=== PATIENT | female | born 1960 | race Caucasian/White ===

== ENCOUNTER 2018-06-23 09:32 | Inpatient (IN) ==
[2018-06-23] MEDS ORDERED: (Linaclotide [Linzess] 145 MCG) PO PRN (13:55)
--- NOTE | 2018-06-23 14:06 | Internal Med History&Physical ---
Addendum entered and electronically signed by Po Love MD 06/24/18 14:22: I have personally performed a face to face evaluation on this patient. I have r eviewed and agree with the care plan. History and Exam by me shows: Patient had a left total hip replacement on 2018, by Dr. Wilks. Her postoperative recovery was complicated by hypotension and because of this, her pain med was held. She was frequently in terrible pain and muscle relaxant alternating with pain medication has helped. She has history of chronic low back pain which causes her to take Vicodin equivalent at home. She is also constipated after surgery and has not moved her bowels since then. She has no nausea or abdominal pain but does feel like she needs to go. She has frequent muscle spasm in the low thigh but it does seem to respond somewhat to Flexeril. She wishes it was better. She has no other complaints or problems. Past medical history was removed. She has depression and anxiety since around 1999 and takes multiple medications for this. She is stable on her current regimen. She has not really had high blood pressure but has had paroxysmal supraventricular tachycardia and takes metoprolol and Cardizem long-acting for this. She has had no arrhythmia in the last few days but they have not given her either of these medications for 2 days because of her low blood pressure. We discussed at length that we want her to have whatever she can have this medication, so that she does not develop repeat arrhythmia. She has significant fibromyalgia and feels that many of her aches and pains are exacerbated by this. Past surgical history is significant for appendectomy, complete hysterectomy, tonsillectomy, low back (lumbar) laminectomy. Promethazine and prochlorperazine make her sick although they are not actual allergies. She does not smoke or drink. Family history is significant for coronary disease but Ativan stage in her father and spinal stenosis and her mother; one brother has diabetes. Both parents also had migraines. She has lost 20 pounds on purpose over the last 2 months. Patient has no complaint of chest discomfort, dyspnea, orthopnea, breathing problems, palpitations, nausea or vomiting, constipation or diarrhea, other changes in bowel habits, heartburn, difficulty with urination, kidney problems or kidney stones, fevers chills or sweats, rash or itching, seizures, headache or lightheadedness, heat or cold intolerance, blood problems or anemia, or other new complaints, except as mentioned above. Review of systems is otherwise negative. Examination: (Except as mentioned above): General: In no apparent distress, alert and oriented 3. Head: Atraumatic and normocephalic. Eyes: Extraocular muscles are intact, pupils equal round and reactive to light and accommodation. Sclerae anicteric. Ears: External ears are normal to inspection and hearing is grossly normal. Nose: Patent without lesion noted. Mouth: No intraoral lesions seen. Dentition is unremarkable. Neck: Supple with trachea midline. There is no thyromegaly or adenopathy and carotids are 2+ without bruit heard. Respiratory: No use of accessory muscles. Lungs are clear throughout. Normal airflow. Cardiovascular: Regular rate and rhythm without murmur appreciated. Abdomen: Bowel sounds are normal. No hepatosplenomegaly masses or tenderness. Obese and therefore difficult to palpate deeply. Patient is examined upright in chair and this also limits exam. Extremities: No cyanosis clubbing or edema. Neurological: A and O 3. Cranial nerves II through XII are intact. No focal deficits and no abnormal movements or postures. Skin: Warm and non-diaphoretic with no lesions noted. Breasts, pelvic and rectal: Not examined. The patient will receive occupational and recreational and physical therapies to restore her station and gait to acceptable and safe. She will likely be a short stay, depending on how she does in therapy. We will place hold parameters on her medications and resume metoprolol and Cardizem as possible. She will receive Lovenox for DVT prophylaxis. Original Note: Date of Encounter: 06/23/18 Time of Encounter: 14:02 Assessment and Plan (1) Status post total hip replacement, left Current visit: Yes Status: Acute Patient admitted to this facility for rehabilitation secondary to a left total hip replacement. Surgical incision appears healthy and intact. Patient states her pain is well-controlled with current medications. Patient will be started on Flexeril for additional pain coverage. Physical therapy evaluation pending. Patient states she has already been ambulating in her room with assistance and has done well. Current plan of care. (2) HTN (hypertension) Current visit: Yes Status: Chronic Vital signs currently are stable. We will continue with current medications. Qualifiers: Hypertension type: essential hypertension Qualified Code(s): I10 - Essential (primary) hypertension (3) Depression Current visit: No Status: Chronic Patient with long history of depression. We will continue with her current home medications. Will have psychology around on patient during her next a and facility. Qualifiers: Depression Type: unspecified Qualified Code(s): F32.9 - Major depressive disorder, single episode, unspecified Internal Medicine - H&P: HPI Chief complaint: left THR Admitted From: Hospital to Hospital Transfer Plans for Post Hospital Care: Home History of present illness: Ms. Randolph is a 57 year old female, who was transferred to this facility from an [facility] where she had an elective left total hip replacement on 06/21/2018. Patient was transferred here for further rehabilitation due to generalized weakness secondary to her surgery. Patient states that her recovery from surgery was uneventful and she currently denies any discomforts or shortness of breath. Left hip surgical incision appears healthy and intact. Distal CV within normal limits. Patient states that she has been ambulating in her room with assistance from physical therapy. Patient currently has a history of depression, fibromyalgia, osteoarthritis, lumbar disc disease, SVT. Past Med Surg Social Fam HX - Past Medical History Medical history: fibromyalgia, hyperlipidemia, SVT, other Additional medical history: depression. anxiety. osteoarthritis. lumbar DDD L4/5 L5/S1. lumbar facet arthropathy. disorder of pelvis, sacrum Psychiatric history: anxiety, depression - Social History Smoking Status: Never smoker Smokeless Tobacco Status: No Alcohol use: none Drug use: none - Family History Father Hx Family Cardiac Disorders: Yes (CABG) Mother Hx Family Neurologic Disorders: Yes (TIA) Internal Medicine - H&P: Meds Aspirin Enteric Coated [Aspirin EC] 325 mg PO BID #20 tablet. 06/20/18 [Rx] Docusate [Colace] 100 mg PO BID 10 Days #20 capsule 06/20/18 [Rx] OxyCODONE Immed Rel [Roxicodone 5 MG] 5 mg PO Q6HR PRN 7 Days #28 tablet 06/20/18 [Rx] Duloxetine HCl [Cymbalta] 60 mg PO DAILY 06/21/18 [History] Linaclotide [Linzess] 145 mcg PO DAILY PRN 06/21/18 [History] Metoprolol Tartrate 50 mg PO BID 06/21/18 [History] Potassium Citrate [Urocit-K] 10 meq PO TID 06/21/18 [History] Pravastatin Sodium [Pravachol] 80 mg PO DAILY 06/21/18 [History] Pregabalin [Lyrica] 150 mg PO BID 06/21/18 [History] BuPROPion [Wellbutrin] 25 mg PO QAM 06/22/18 [History] BuPROPion [Wellbutrin] 50 mg PO HS 06/22/18 [History] Buspirone HCl [Buspar] 15 mg PO BID 06/22/18 [History] Celecoxib [Celebrex] 100 mg PO BID 06/22/18 [History] Diltiazem CD (24hr) [Cardizem CD] 240 mg PO DAILY 06/22/18 [History] Ascorbic Acid [Vitamin C] 500 mg PO BIDWM tablet 06/23/18 [Rx] Ferrous Sulfate 325 mg PO BIDWM tablet 06/23/18 [Rx] Multivit/Ca/Min/Fe/FA [Thera M Plus] 1 tab PO DAILY tablet 06/23/18 [Rx] Allergy/AdvReac Type Severity Reaction Status Date / Time bupropion [From Wellbutrin] Allergy See Verified 06/16/18 10:29 Comments prochlorperazine Allergy See Verified 06/16/18 10:29 [From Compazine] Comments promethazine [From Phenergan] Allergy See Verified 06/16/18 10:29 Comments All Systems PM: A 10-system review of systems was performed and is negative for pertinent findings except as documented above in the HPI. - Constitutional Constitutional: as per HPI, no chills, no fever(s), no night sweats - EENT Eyes: as per HPI, no change in vision, no discharge, no pain, no photophobia Ears: as per HPI, no ear discharge, no ear pain, no tinnitus Nose, mouth and throat: as per HPI, no dysphagia, no nasal discharge, no neck pain, no sore throat - Breasts Breasts: as per HPI - Cardiovascular Cardiovascular ROS IM: as per HPI, no chest pain, no diaphoresis, no dyspnea, no lightheadedness, no palpitations, no syncope - Respiratory Respiratory: as per HPI, no cough, no dyspnea, no wheezing, no excessive phlegm production - Gastrointestinal Gastrointestinal: as per HPI, no abdominal pain, no diarrhea, no hematemesis, no hematochezia, no melena, no nausea, no vomiting - Genitourinary Genitourinary: as per HPI, no change in urinary stream, no dysuria, no flank deanna n, no hematuria Menstruation: as per HPI - Musculoskeletal Musculoskeletal ROS IM: as per HPI, no numbness, no tingling - Integumentary Integumentary IM: as per HPI, no rash, no unusual bruising - Neurological Neurological ROS: as per HPI, no confusion, no convulsions, no focal weakness, no numbness, no tingling, no tremor(s) - Psychiatric Psychiatric: as per HPI - Hematologic/Lymphatic Hematologic/Lymphatic: no easy bruising - Constitutional Vitals: Temp Pulse Resp BP Pulse Ox 97.6 F 92 15 105/71 93 06/23/18 13:45 06/23/18 13:45 06/23/18 13:45 06/23/18 13:45 06/23/18 13:45 General appearance: Present: A&O X 3, pleasant - Head Head exam: Present: atraumatic, normocephalic - Eye Eye exam: Present: PERRL, conjuntiva pink, sclera anicteric Pupils: Present: PERRL - Neck Neck exam general surgery: Present: full ROM, supple, trachea midline. Absent: lymphadenopathy - Respiratory Respiratory exam: Present: CTAB. Absent: accessory muscle use, rales, rhonchi, wheezes - Cardiovascular Cardiovascular exam: Present: RRR, +S1, +S2. Absent: diastolic murmur, gallop, rubs, systolic murmur - GI/Abdominal GI/Abdominal exam: Present: normal bowel sounds, soft, no peritoneal signs. Absent: distended, tenderness - Extremities Exam Extremities exam: Present: warm, radial pulses palpable and symmetrical. Absent: calf tenderness, cyanotic, pedal edema Additional comments: Left hip surgical incision remains healthy and intact. Minimal amount of edema. No ecchymosis noted. - Neurological Exam Neurological exam: Present: CN II-XII intact, oriented X3, no focal deficits. Absent: pronater drift, facial droop, speech deficit - Skin Skin exam: Present: dry, intact
[2018-06-23] MEDS: Potassium Citrate 10 MEQ TABLET.ER PO SCH ×2 (15:17→22:03)
[2018-06-23] MEDS: Ascorbic Acid 500 MG TABLET PO SCH (17:49)
[2018-06-23] MEDS: *HR* OxyCODONE Immed Rel 5 MG TABLET PO PRN (17:49)
[2018-06-23] MEDS: Celecoxib 100 MG CAPSULE PO SCH (22:00)
[2018-06-23] MEDS: Pregabalin 75 MG CAPSULE PO SCH (22:01)
[2018-06-23] MEDS: Aspirin Enteric Coated 325 MG Tablet PO SCH (22:01)
[2018-06-24] MEDS: *HR* OxyCODONE Immed Rel 5 MG TABLET PO PRN ×4 (01:32→22:35)
[2018-06-24] MEDS: *HR* Enoxaparin 40 MG/0.4 ML SYRINGE SQ SCH (04:24)
[2018-06-24 05:03] LABS: Basophils % 0.4 %; Eosinophils # 0.2 K/mcL (0.0-0.6); Eosinophils % 2.8 %; Hematocrit 31.4 % (35.3-44.9); Hemoglobin 10.3 g/dL (11.5-15.4); Immature Granulocytes % 0.4 % (0-4); Lymphocytes # 1.2 K/mcL (0.6-4.6); Lymphocytes % 14.2 %; Mean Corpuscular HGB Conc 32.8 g/dL (31.6-35.5); Mean Corpuscular Hemoglobin 30.9 pg (28.0-33.3); Mean Corpuscular Volume 94.3 fL (83.0-100.0); Mean Platelet Volume 11.3 fL (9.4-12.4); Monocytes # 0.7 K/mcL (0.0-1.3); Monocytes % 8.4 %; Neutrophils # 6.2 K/mcL (1.6-8.9); Platelet Count 214 K/mcL (140-400); Red Blood Count 3.33 M/mcL (3.82-4.97); Red Cell Distribution Width 13.4 % (11.5-14.5); Segmented Neutrophils % 73.8 %
[2018-06-24 05:18] LABS: Alanine Aminotransferase 9 Units/L (7-52); Albumin 3.2 g/dL (3.5-5.7); Albumin/Globulin Ratio 1.2 (1.1-2.2); Alkaline Phosphatase 47 Units/L (34-104); Aspartate Amino Transferase 27 Units/L (13-39); BUN/Creatinine Ratio 13 (6-26); Bilirubin,Total 0.3 mg/dL (0.3-1.0); Blood Urea Nitrogen 10 mg/dL (6-20); Calcium 8.4 mg/dL (8.6-10.3); Carbon Dioxide 24 mEq/L (23-29); Chloride 108 mEq/L (98-107); Globulin 2.6 g/dL (2.4-3.5); Glucose 108 mg/dL (70-105); Magnesium 1.7 mg/dL (1.6-2.6); Osmolality,Calculated 286 (280-300); Potassium 3.8 mEq/L (3.5-5.1); Sodium 138 mEq/L (136-145); Total Protein 5.8 g/dL (6.4-8.9); eGFR For Non-African Americans > 60 (> 60)
[2018-06-24] MEDS ORDERED: Diltiazem CD (24hr) 240 MG CAPSULE PO SCH ×2 (09:00→14:38)
[2018-06-24] MEDS: Potassium Citrate 10 MEQ TABLET.ER PO SCH ×3 (09:44→20:21)
[2018-06-24] MEDS: Multivit/Ca/Min/Fe/FA 1 TAB TABLET PO SCH (09:44)
[2018-06-24] MEDS: Ascorbic Acid 500 MG TABLET PO SCH ×2 (09:45→17:38)
[2018-06-24] MEDS: Pregabalin 75 MG CAPSULE PO SCH ×2 (09:45→20:21)
[2018-06-24] MEDS: Celecoxib 100 MG CAPSULE PO SCH ×2 (09:45→20:20)
[2018-06-24] MEDS: Aspirin Enteric Coated 325 MG Tablet PO SCH (11:31)
--- NOTE | 2018-06-24 14:34 | Internal Med Progress Note ---
Date of Encounter: 06/24/18 Time of Encounter: 11:30 - Assessment and plan (1) Status post total hip replacement, left Current Visit: Yes Status: Acute Assessment and plan: Therapies as planned. (2) SVT (supraventricular tachycardia) Current Visit: No Status: Chronic Assessment and plan: Treated with metoprolol and Cardizem, as noted. (3) HLD (hyperlipidemia) Current Visit: No Status: Chronic Assessment and plan: We will continue current regimen. Qualifiers: Hyperlipidemia type: mixed hyperlipidemia Qualified Code(s): E78.2 - Mixed hyperlipidemia (4) Depression Current Visit: No Status: Chronic Assessment and plan: We will continue home regimen. Qualifiers: Depression Type: unspecified Qualified Code(s): F32.9 - Major depressive disorder, single episode, unspecified (5) Anxiety Current Visit: No Status: Chronic Assessment and plan: We will continue home regimen. (6) Constipation by delayed colonic transit Current Visit: Yes Status: Acute Assessment and plan: We discussed the use of her Linzess from home when she can get it here. Until then, I suggested that she use at least MiraLAX tonight. - Subjective Interval history: Please see my H&P addendum as noted, today. - Constitutional Vitals: Temp Pulse Resp BP Pulse Ox 98.5 F 93 16 109/73 99 06/24/18 12:00 06/24/18 12:00 06/24/18 12:00 06/24/18 12:00 06/24/18 12:00 General appearance: Present: A&O X 3, pleasant Internal Medicine: Result - Labs CBC & Chem 7: 06/24/18 04:45 06/24/18 04:45 Labs: Short CBC 06/24/18 Range/Units 04:45 WBC 8.4 (4.3-11.1) K/mcL Hgb 10.3 L (11.5-15.4) g/dL Hct 31.4 L (35.3-44.9) % Plt Count 214 (140-400) K/mcL Neutrophils # 6.2 (1.6-8.9) K/mcL BMP 06/24/18 04:45 Sodium 138 Potassium 3.8 Chloride 108 H Carbon Dioxide 24 BUN 10 Creatinine 0.77 Glucose 108 H Calcium 8.4 L Liver Function 06/24/18 Range/Units 04:45 Total Bilirubin 0.3 (0.3-1.0) mg/dL AST 27 (13-39) Units/L ALT 9 (7-52) Units/L Alkaline Phosphatase 47 (34-104) Units/L Albumin 3.2 L (3.5-5.7) g/dL Consult Discharge Plan - Plan Referrals: Sally Bernstein [Primary Care Provider] -
[2018-06-24] MEDS ORDERED: tiZANidine 4 MG TABLET PO PRN (14:39)
[2018-06-24] MEDS ORDERED: *HR* OxyCODONE Immed Rel 5 MG TABLET PO SCH (16:00)
[2018-06-24] MEDS: Acetaminophen 325 MG TABLET PO PRN (19:01)
[2018-06-25] MEDS: *HR* Enoxaparin 40 MG/0.4 ML SYRINGE SQ SCH (05:34)
[2018-06-25] MEDS: *HR* OxyCODONE Immed Rel 5 MG TABLET PO PRN ×4 (05:35→21:34)
[2018-06-25] MEDS: Potassium Citrate 10 MEQ TABLET.ER PO SCH ×3 (09:42→21:28)
[2018-06-25] MEDS: Ascorbic Acid 500 MG TABLET PO SCH ×2 (09:42→17:14)
[2018-06-25] MEDS: Pregabalin 75 MG CAPSULE PO SCH ×2 (09:42→21:28)
[2018-06-25] MEDS: Multivit/Ca/Min/Fe/FA 1 TAB TABLET PO SCH (09:43)
[2018-06-25] MEDS: Celecoxib 100 MG CAPSULE PO SCH ×2 (09:43→21:29)
--- NOTE | 2018-06-25 10:26 | Internal Med Progress Note ---
Addendum entered and electronically signed by Larisa Belcher 06/27/18 13:21: I have personally performed a face to face evaluation on this patient. I have reviewed and agree with the care plan. : Original Note: Date of Encounter: 06/25/18 Time of Encounter: 10:24 - Assessment and plan (1) Status post total hip replacement, left Current Visit: Yes Status: Acute Assessment and plan: Left hip surgical incision remains healthy and intact. Patient progressing well with physical therapy. Patient states that her pain to her surgical site has been tolerable with current medications. We will continue with current plan of care (2) HTN (hypertension) Current Visit: Yes Status: Chronic Assessment and plan: Vital signs have remained stable. We will continue with current medications. Qualifiers: Hypertension type: essential hypertension Qualified Code(s): I10 - Essential (primary) hypertension (3) Depression Current Visit: No Status: Chronic Assessment and plan: No acute issues. Patient is interacting well with staff. We will continue on current home medications. Qualifiers: Depression Type: unspecified Qualified Code(s): F32.9 - Major depressive disorder, single episode, unspecified (4) Left knee pain Current Visit: Yes Status: Chronic Assessment and plan: Patient has had issues with chronic pain to her left knee but states that her pain has worsened since her surgery on her left hip. Left knee appears swollen with slight tenderness on palpation. No erythema We will obtained x-rays of left knee for evaluation. Qualifiers: Chronicity: chronic Qualified Code(s): M25.562 - Pain in left knee; G89.29 - Other chronic pain - Subjective Interval history: Patient appears relaxed currently denies any dyspnea but states both surgical discomforts and pain to her left knee. Patient states that she has had chronic pain issues with the left knee but that her pain has worsened since her surgery. Patient states that her orthopedic surgeon is aware and was hoping that correcting her left hip would help correct the pain issues with her left knee. - Constitutional Vitals: Temp Pulse Resp BP Pulse Ox 98.4 F 69 16 103/68 97 06/25/18 07:53 06/25/18 08:50 06/25/18 07:53 06/25/18 08:50 06/25/18 07:53 General appearance: Present: A&O X 3, pleasant - Head Head exam: Present: atraumatic, normocephalic - Eye Eye exam: Present: PERRL, conjuntiva pink, sclera anicteric Pupils: Present: PERRL - Neck Neck exam general surgery: Present: supple, trachea midline. Absent: lymphadenopathy - Respiratory Respiratory exam: Present: CTAB. Absent: accessory muscle use, rales, rhonchi, wheezes - Cardiovascular Cardiovascular exam: Present: RRR, +S1, +S2. Absent: diastolic murmur, gallop, rubs, systolic murmur - GI/Abdominal GI/Abdominal exam: Present: normal bowel sounds, soft, no peritoneal signs. Absent: distended, tenderness - Extremities Exam Extremities exam: Present: warm, radial pulses palpable and symmetrical. Absent: calf tenderness, cyanotic, pedal edema Additional comments: Left leg and knee appears slightly swollen. Minimal tenderness to left knee during palpation. Left hip surgical incision remains healthy and intact. - Neurological Exam Neurological exam: Present: CN II-XII intact, oriented X3, no focal deficits. Absent: pronater drift, facial droop, speech deficit - Skin Skin exam: Present: dry, intact Internal Medicine: Result - Labs CBC & Chem 7: 06/24/18 04:45 06/24/18 04:45 Consult Discharge Plan - Plan Referrals: Sally Bernstein [Primary Care Provider] -
[2018-06-25] MEDS: Sennosides/Docusate Sodium TABLET PO SCH (21:29)
[2018-06-26] MEDS: Acetaminophen 325 MG TABLET PO PRN ×2 (01:58→13:35)
[2018-06-26] MEDS: *HR* OxyCODONE Immed Rel 5 MG TABLET PO PRN ×4 (04:27→21:22)
[2018-06-26] MEDS: *HR* Enoxaparin 40 MG/0.4 ML SYRINGE SQ SCH (04:28)
[2018-06-26] MEDS: Diltiazem CD (24hr) 180 MG CAPSULE PO SCH (10:00)
[2018-06-26] MEDS: Pregabalin 75 MG CAPSULE PO SCH ×2 (10:03→21:21)
[2018-06-26] MEDS: Multivit/Ca/Min/Fe/FA 1 TAB TABLET PO SCH (10:03)
[2018-06-26] MEDS: Potassium Citrate 10 MEQ TABLET.ER PO SCH ×3 (10:04→21:21)
[2018-06-26] MEDS: Celecoxib 100 MG CAPSULE PO SCH ×2 (10:04→21:20)
[2018-06-26] MEDS: Sennosides/Docusate Sodium TABLET PO SCH ×2 (10:04→21:21)
[2018-06-26] MEDS: Ascorbic Acid 500 MG TABLET PO SCH ×2 (10:05→17:17)
--- NOTE | 2018-06-26 17:50 | Internal Med Progress Note ---
Date of Encounter: 06/26/18 Time of Encounter: 17:50 - Subjective Interval history: - Assessment and plan (1) Status post total hip replacement, left Current Visit: Yes Status: Acute Assessment and plan: Left hip surgical incision remains healthy and intact. Patient progressing well with physical therapy. Patient states that her pain to her surgical site has been tolerable with current medications. We will continue with current plan of care (2) HTN (hypertension) Current Visit: Yes Status: Chronic Assessment and plan: Vital signs have remained stable. We will continue with current medications. Qualifiers: Hypertension type: essential hypertension Qualified Code(s): I10 - Essential (primary) hypertension (3) Depression Current Visit: No Status: Chronic Assessment and plan: No acute issues. Patient is interacting well with staff. We will continue on current home medications. Qualifiers: Depression Type: unspecified Qualified Code(s): F32.9 - Major depressive disorder, single episode, unspecified (4) Left knee pain Current Visit: Yes Status: Chronic Assessment and plan: Patient has had issues with chronic pain to her left knee but states that her pain has worsened since her surgery on her left hip. Left knee appears swollen with slight tenderness on palpation. No erythema We will obtained x-rays of left knee for evaluation. Qualifiers: Chronicity: chronic Qualified Code(s): M25.562 - Pain in left knee; G89.29 - Other chronic pain - Subjective Interval history: Patient appears relaxed currently denies any dyspnea but states both surgical discomforts and pain to her left knee. Patient states that she has had chronic pain issues with the left knee but that her pain has worsened since her surgery. Patient states that her orthopedic surgeon is aware and was hoping that correcting her left hip would help correct the pain issues with her left knee. EXAM General appearance: Present: A&O X 3, pleasant - Head Head exam: Present: atraumatic, normocephalic - Eye Eye exam: Present: PERRL, conjuntiva pink, sclera anicteric Pupils: Present: PERRL - Neck Neck exam general surgery: Present: supple, trachea midline. Absent: lymphadenopathy - Respiratory Respiratory exam: Present: CTAB. Absent: accessory muscle use, rales, rhonchi, wheezes - Cardiovascular Cardiovascular exam: Present: RRR, +S1, +S2. Absent: diastolic murmur, gallop, rubs, systolic murmur - GI/Abdominal GI/Abdominal exam: Present: normal bowel sounds, soft, no peritoneal signs. Absent: distended, tenderness - Extremities Exam Extremities exam: Present: warm, radial pulses palpable and symmetrical. Absent: calf tenderness, cyanotic, pedal edema Additional comments: Left leg and knee appears slightly swollen. Minimal tenderness to left knee during palpation. Left hip surgical incision remains healthy and intact. - Neurological Exam Neurological exam: Present: CN II-XII intact, oriented X3, no focal deficits. Absent: pronater drift, facial droop, speech deficit - Skin Skin exam: Present: dry, intact - Constitutional Vitals: Temp Pulse Resp BP Pulse Ox 98.0 F 85 14 105/63 96 06/26/18 07:44 06/26/18 07:44 06/26/18 07:44 06/26/18 07:44 06/26/18 07:44 General appearance: Present: A&O X 3, pleasant Internal Medicine: Result - Labs CBC & Chem 7: 06/24/18 04:45 06/24/18 04:45 Consult Discharge Plan - Plan Referrals: Sally Bernstein [Primary Care Provider] -
[2018-06-27] MEDS: *HR* Enoxaparin 40 MG/0.4 ML SYRINGE SQ SCH (05:23)
[2018-06-27] MEDS: *HR* OxyCODONE Immed Rel 5 MG TABLET PO PRN ×4 (05:23→21:32)
[2018-06-27] MEDS: Acetaminophen 325 MG TABLET PO PRN (08:10)
[2018-06-27] MEDS: Diltiazem CD (24hr) 180 MG CAPSULE PO SCH (08:10)
[2018-06-27] MEDS: Multivit/Ca/Min/Fe/FA 1 TAB TABLET PO SCH (08:10)
[2018-06-27] MEDS: Potassium Citrate 10 MEQ TABLET.ER PO SCH ×3 (08:10→21:32)
[2018-06-27] MEDS: Ascorbic Acid 500 MG TABLET PO SCH ×2 (08:11→16:22)
[2018-06-27] MEDS: Pregabalin 75 MG CAPSULE PO SCH ×2 (08:11→21:31)
[2018-06-27] MEDS: Celecoxib 100 MG CAPSULE PO SCH ×2 (08:11→21:31)
[2018-06-27] MEDS: Sennosides/Docusate Sodium TABLET PO SCH ×2 (08:12→21:32)
--- NOTE | 2018-06-27 13:26 | Internal Med Progress Note ---
Date of Encounter: 06/27/18 Time of Encounter: 14:20 - Subjective Interval history: - Assessment and plan (1) Status post total hip replacement, left Current Visit: Yes Status: Acute Assessment and plan: Left hip surgical incision remains healthy and intact. Patient progressing well with physical therapy. Patient states that her pain to her surgical site has been tolerable with current medications. We will continue with current plan of care (2) HTN (hypertension) Current Visit: Yes Status: Chronic Assessment and plan: Vital signs have remained stable. We will continue with current medications. Qualifiers: Hypertension type: essential hypertension Qualified Code(s): I10 - Essential (primary) hypertension (3) Depression Current Visit: No Status: Chronic Assessment and plan: No acute issues. Patient is interacting well with staff. We will continue on current home medications. Qualifiers: Depression Type: unspecified Qualified Code(s): F32.9 - Major depressive disorder, single episode, unspecified (4) Left knee pain Current Visit: Yes Status: Chronic Assessment and plan: Patient has had issues with chronic pain to her left knee but states that her pain has worsened since her surgery on her left hip. Left knee appears swollen with slight tenderness on palpation. No erythema We will obtained x-rays of left knee for evaluation. Qualifiers: Chronicity: chronic Qualified Code(s): M25.562 - Pain in left knee; G89.29 - Other chronic pain - Subjective Interval history: Pt says her HIP pain is controlled. She says she still has pain in left knee. Chronic.. Patient states that her orthopedic surgeon is aware and was hoping that correcting her left hip would help correct the pain issues with her left knee. EXAM General appearance: Present: A&O X 3, pleasant - Head Head exam: Present: atraumatic, normocephalic - Eye Eye exam: Present: PERRL, conjuntiva pink, sclera anicteric Pupils: Present: PERRL - Neck Neck exam general surgery: Present: supple, trachea midline. Absent: lymphadenopathy - Respiratory Respiratory exam: Present: CTAB. Absent: accessory muscle use, rales, rhonchi, wheezes - Cardiovascular Cardiovascular exam: Present: RRR, +S1, +S2. Absent: diastolic murmur, gallop, rubs, systolic murmur - GI/Abdominal GI/Abdominal exam: Present: normal bowel sounds, soft, no peritoneal signs. Absent: distended, tenderness - Extremities Exam Extremities exam: Present: warm, radial pulses palpable and symmetrical. Absent: calf tenderness, cyanotic, pedal edema Additional comments: Left leg and knee appears slightly swollen. Minimal tenderness to left knee during palpation. Left hip surgical incision remains healthy and intact. - Neurological Exam Neurological exam: Present: CN II-XII intact, oriented X3, no focal deficits. Absent: pronater drift, facial droop, speech deficit - Skin Skin exam: Present: dry, intact - Constitutional Vitals: Temp Pulse Resp BP Pulse Ox 97.8 F 79 18 110/49 95 06/27/18 07:54 06/27/18 07:54 06/27/18 07:54 06/27/18 07:54 06/27/18 07:54 Internal Medicine: Result - Labs CBC & Chem 7: 06/24/18 04:45 06/24/18 04:45 Consult Discharge Plan - Plan Referrals: Sally Bernstein [Primary Care Provider] -
[2018-06-28] MEDS: *HR* OxyCODONE Immed Rel 5 MG TABLET PO PRN ×4 (02:04→20:38)
[2018-06-28 05:16] LABS: Basophils % 0.6 %; Eosinophils # 0.4 K/mcL (0.0-0.6); Eosinophils % 5.9 %; Hematocrit 34.5 % (35.3-44.9); Hemoglobin 11.1 g/dL (11.5-15.4); Immature Granulocytes % 0.3 % (0-4); Lymphocytes # 1.4 K/mcL (0.6-4.6); Lymphocytes % 21.2 %; Mean Corpuscular HGB Conc 32.2 g/dL (31.6-35.5); Mean Corpuscular Hemoglobin 30.7 pg (28.0-33.3); Mean Corpuscular Volume 95.6 fL (83.0-100.0); Mean Platelet Volume 10.3 fL (9.4-12.4); Monocytes # 0.8 K/mcL (0.0-1.3); Monocytes % 12.2 %; Neutrophils # 4.1 K/mcL (1.6-8.9); Red Blood Count 3.61 M/mcL (3.82-4.97); Red Cell Distribution Width 13.2 % (11.5-14.5); Segmented Neutrophils % 59.8 %
[2018-06-28 05:20] LABS: Platelet Count 329 K/mcL (140-400)
[2018-06-28 05:59] LABS: Alanine Aminotransferase 12 Units/L (7-52); Albumin 3.4 g/dL (3.5-5.7); Albumin/Globulin Ratio 1.2 (1.1-2.2); Alkaline Phosphatase 48 Units/L (34-104); Aspartate Amino Transferase 23 Units/L (13-39); BUN/Creatinine Ratio 15 (6-26); Bilirubin,Total 0.4 mg/dL (0.3-1.0); Blood Urea Nitrogen 12 mg/dL (6-20); Calcium 8.8 mg/dL (8.6-10.3); Carbon Dioxide 30 mEq/L (23-29); Chloride 103 mEq/L (98-107); Globulin 2.8 g/dL (2.4-3.5); Glucose 103 mg/dL (70-105); Magnesium 2.3 mg/dL (1.6-2.6); Osmolality,Calculated 288 (280-300); Potassium 5.1 mEq/L (3.5-5.1); Sodium 139 mEq/L (136-145); Total Protein 6.2 g/dL (6.4-8.9); eGFR For Non-African Americans > 60 (> 60)
[2018-06-28] MEDS: *HR* Enoxaparin 40 MG/0.4 ML SYRINGE SQ SCH (06:13)
[2018-06-28] MEDS: Pregabalin 75 MG CAPSULE PO SCH ×2 (09:31→20:39)
[2018-06-28] MEDS: Celecoxib 100 MG CAPSULE PO SCH ×2 (09:31→20:39)
[2018-06-28] MEDS: Ascorbic Acid 500 MG TABLET PO SCH ×2 (09:31→17:00)
[2018-06-28] MEDS: Potassium Citrate 10 MEQ TABLET.ER PO SCH ×3 (09:32→20:38)
[2018-06-28] MEDS: Multivit/Ca/Min/Fe/FA 1 TAB TABLET PO SCH (09:32)
[2018-06-28] MEDS: Diltiazem CD (24hr) 180 MG CAPSULE PO SCH (09:33)
[2018-06-28] MEDS: Sennosides/Docusate Sodium TABLET PO SCH ×2 (09:34→20:39)
--- NOTE | 2018-06-28 11:53 | Internal Med Progress Note ---
Addendum entered and electronically signed by Po Love MD 06/28/18 15:16: I have personally performed a face to face evaluation on this patient. I have r eviewed and agree with the care plan. History and Exam by me shows: The patient is feeling well and is pleased to be going home soon. Upon further conversation, she has been told that she may be discharged tomorrow. She is pleased with this. She moved her bowels about 20 minutes ago and is pleased with the progress. She has left knee pain which she notes with walking. Discussed care with other providers and/or nursing. Patient has no complaint of chest discomfort, dyspnea, orthopnea, palpitations, nausea or vomiting, constipation or diarrhea, other changes in bowel habits, difficulty with urination, rash or itching, or other new complaints, except as mentioned above. Review of systems is otherwise negative. Examination: (Except as mentioned above): General: In no apparent distress. Alert and oriented 3. Nondiaphoretic. Head: Atraumatic and normocephalic. Respiratory: No use of accessory muscles. Lungs are clear throughout. Normal airflow. Cardiovascular: Regular rate and rhythm without murmur appreciated. Abdomen: Bowel sounds are normal. No hepatosplenomegaly mass or tenderness appreciated. Obese and therefore difficult to palpate deeply. Patient is examined upright at bedside and this also limits exam. Extremities: No cyanosis clubbing or edema. Skin: Warm and non-diaphoretic with no new lesions noted. Original Note: Date of Encounter: 06/28/18 Time of Encounter: 11:50 - Assessment and plan (1) Status post total hip replacement, left Current Visit: Yes Status: Acute Assessment and plan: Dressing dry and intact. Surrounding edema. No drainage. Pain controlled with current medication. Follow up with ortho as scheduled. Continue PT and OT. Will follow progress. (2) HTN (hypertension) Current Visit: Yes Status: Chronic Assessment and plan: Controlled with current medication. Monitor blood pressure. Qualifiers: Hypertension type: essential hypertension Qualified Code(s): I10 - E ssential (primary) hypertension - Time Spent With Patient less than 15 minutes - Subjective Interval history: Participating well with therapy. Pain controlled with current medication. States last bowel movement was yesterday. Ambulating with Walker in hallway with therapy. Denies fever, chills nausea vomiting or diarrhea. Maintaining appetite and hydration. - Constitutional Vitals: Temp Pulse Resp BP Pulse Ox 98.4 F 82 16 106/68 94 06/28/18 07:17 06/28/18 07:17 06/28/18 07:17 06/28/18 07:17 06/28/18 07:17 General appearance: Present: cooperative, A&O X 3, pleasant, no acute distress, answers questions appropriately - Head Head exam: Present: atraumatic, normocephalic - Eye Eye exam: Present: PERRL, conjuntiva pink, sclera anicteric Pupils: Present: PERRL - Neck Neck exam general surgery: Present: supple, trachea midline. Absent: lymphadenopathy - Respiratory Respiratory exam: Present: CTAB. Absent: accessory muscle use, rales, rhonchi, wheezes - Cardiovascular Cardiovascular exam: Present: RRR, +S1, +S2. Absent: diastolic murmur, gallop, rubs, systolic murmur - GI/Abdominal GI/Abdominal exam: Present: normal bowel sounds, soft, no peritoneal signs. Abs ent: distended, tenderness - Extremities Exam Extremities exam: Present: warm, radial pulses palpable and symmetrical. Absent: calf tenderness, cyanotic, pedal edema Additional comments: Left hip incision dressing dry and intact. No drainage. Does have surrounding edema. - Neurological Exam Neurological exam: Present: CN II-XII intact, oriented X3, no focal deficits. Absent: pronater drift, facial droop, speech deficit - Skin Skin exam: Present: dry, intact Internal Medicine: Result - Labs CBC & Chem 7: 06/28/18 05:10 06/28/18 05:10 Labs: Short CBC 06/28/18 Range/Units 05:10 WBC 6.8 (4.3-11.1) K/mcL Hgb 11.1 L (11.5-15.4) g/dL Hct 34.5 L (35.3-44.9) % Plt Count 329 D (140-400) K/mcL Neutrophils # 4.1 (1.6-8.9) K/mcL BMP 06/28/18 05:10 Sodium 139 Potassium 5.1 Chloride 103 Carbon Dioxide 30 H BUN 12 Creatinine 0.81 Glucose 103 Calcium 8.8 Liver Function 06/28/18 Range/Units 05:10 Total Bilirubin 0.4 (0.3-1.0) mg/dL AST 23 (13-39) Units/L ALT 12 (7-52) Units/L Alkaline Phosphatase 48 (34-104) Units/L Albumin 3.4 L (3.5-5.7) g/dL Consult Discharge Plan - Plan Referrals: Sally Bernstein [Primary Care Provider] -
[2018-06-29] MEDS: *HR* OxyCODONE Immed Rel 5 MG TABLET PO PRN ×2 (02:01→10:15)
[2018-06-29] MEDS: Acetaminophen 325 MG TABLET PO PRN (03:47)
[2018-06-29] MEDS: *HR* Enoxaparin 40 MG/0.4 ML SYRINGE SQ SCH (07:04)
[2018-06-29 07:12] LABS: Basophils % 0.5 %; Eosinophils # 0.4 K/mcL (0.0-0.6); Eosinophils % 5.4 %; Hematocrit 37.3 % (35.3-44.9); Immature Granulocytes % 0.3 % (0-4); Lymphocytes # 1.3 K/mcL (0.6-4.6); Lymphocytes % 16.5 %; Mean Corpuscular HGB Conc 32.2 g/dL (31.6-35.5); Mean Corpuscular Hemoglobin 30.5 pg (28.0-33.3); Mean Corpuscular Volume 94.9 fL (83.0-100.0); Mean Platelet Volume 9.9 fL (9.4-12.4); Monocytes # 0.6 K/mcL (0.0-1.3); Monocytes % 8.2 %; Neutrophils # 5.2 K/mcL (1.6-8.9); Platelet Count 413 K/mcL (140-400); Red Blood Count 3.93 M/mcL (3.82-4.97); Red Cell Distribution Width 13.2 % (11.5-14.5); Segmented Neutrophils % 69.1 %
[2018-06-29 07:29] LABS: Alanine Aminotransferase 17 Units/L (7-52); Albumin 3.8 g/dL (3.5-5.7); Albumin/Globulin Ratio 1.3 (1.1-2.2); Alkaline Phosphatase 57 Units/L (34-104); Aspartate Amino Transferase 27 Units/L (13-39); BUN/Creatinine Ratio 14 (6-26); Bilirubin,Total 0.4 mg/dL (0.3-1.0); Blood Urea Nitrogen 11 mg/dL (6-20); Calcium 9.2 mg/dL (8.6-10.3); Carbon Dioxide 29 mEq/L (23-29); Chloride 103 mEq/L (98-107); Globulin 2.9 g/dL (2.4-3.5); Glucose 104 mg/dL (70-105); Magnesium 2.4 mg/dL (1.6-2.6); Osmolality,Calculated 290 (280-300); Potassium 4.2 mEq/L (3.5-5.1); Sodium 140 mEq/L (136-145); Total Protein 6.7 g/dL (6.4-8.9); eGFR For Non-African Americans > 60 (> 60)
[2018-06-29 07:44] VITALS: BP 118/69
[2018-06-29] MEDS: Ascorbic Acid 500 MG TABLET PO SCH (08:09)
[2018-06-29] MEDS: Multivit/Ca/Min/Fe/FA 1 TAB TABLET PO SCH (08:09)
[2018-06-29] MEDS: Pregabalin 75 MG CAPSULE PO SCH (08:11)
[2018-06-29] MEDS: Potassium Citrate 10 MEQ TABLET.ER PO SCH (08:12)
[2018-06-29] MEDS: Diltiazem CD (24hr) 180 MG CAPSULE PO SCH (08:12)
[2018-06-29] MEDS: Celecoxib 100 MG CAPSULE PO SCH (08:12)
[2018-06-29] MEDS: Sennosides/Docusate Sodium TABLET PO SCH (08:13)
--- NOTE | 2018-06-29 11:39 | Discharge Summary ---
Orders not resulted at time of discharge: Pending orders 06/30/18 04:00 Complete Blood Count [HEME] AM 0400 Date of Encounter: 06/29/18 Time of Encounter: 11:36 - Discharge Diagnosis (1) Status post total hip replacement, left Priority: Primary Status: Acute Comments: Patient was admitted to this facility for rehabilitation due to weakness secondary to her left hip replacement. Surgical incision has been healing well. Patient's pain has been well managed with current oral medications. Patient has dissipated and physical therapy has progressing well. Patient will continue her therapy as an outpatient here at the refill. Patient is to follow-up with PCP and orthopedic surgeon. (2) HTN (hypertension) Priority: Secondary Status: Chronic Comments: Vital signs remained stable during her stay at this facility. Patient is to follow-up with PCP after discharge. We will continue on current home medications Qualifiers: Hypertension type: essential hypertension Qualified Code(s): I10 - Essential (primary) hypertension (3) Depression Priority: Secondary Status: Chronic Comments: No acute issues during her stay here. Patient is interacting well with staff. We will continue with current medications Qualifiers: Depression Type: unspecified Qualified Code(s): F32.9 - Major depressive disorder, single episode, unspecified (4) Left knee pain Priority: Secondary Status: Chronic Comments: Patient continues with complaints of pain to left knee. X-ray was obtained which shows arthritic changes but no acute process. Patient to continue follow- up with orthopedic surgeon for further monitoring Qualifiers: Chronicity: chronic Qualified Code(s): M25.562 - Pain in left knee; G89.29 - Other chronic pain Hospital course: Ms. Randolph is a 57 year old female, who was transferred to this facility from an [facility] where she had an elective left total hip replacement on 06/21/2018. Patient was transferred here for further rehabilitation due to generalized weakness secondary to her surgery. Patient states that her recovery from surgery was uneventful. Left hip surgical incision remains healthy and intact. Distal CV within normal limits. Patient has dissipated and physical therapy and progressed well during her stay at this facility. Patient continues with complaints of pain to her left knee which her orthopedic surgeon is aware of. Patient had a x-ray obtained of left knee which shows no acute process. Pain has been well managed during her stay here with oral medications. Patient is continuing physical therapy as an outpatient. Patient recommended to follow up with her PCP in one week and continue scheduled follow-up with orthopedic surgeon. Patient currently has a history of depression, fibromyalgia, osteoarthritis, lumbar disc disease, SVT. Discharge discussed with: patient Time spent discussing smoking cessation with patient: 3 to 10 minutes - Time Spent with Patient Total time spent providing and/or coordinating discharge services: Less than 30 minutes - Discharge Medications Prescriptions: No Action Aspirin Enteric Coated [Aspirin EC] 325 mg PO BID #20 tablet. Docusate [Colace] 100 mg PO BID 10 Days #20 capsule Pregabalin [Lyrica] 150 mg PO BID Pravastatin Sodium [Pravachol] 80 mg PO DAILY Metoprolol Tartrate 50 mg PO BID Duloxetine HCl [Cymbalta] 60 mg PO DAILY Potassium Citrate [Urocit-K] 10 meq PO TID Linaclotide [Linzess] 145 mcg PO DAILY PRN PRN Reason: Constipation Diltiazem CD (24hr) [Cardizem CD] 240 mg PO DAILY Celecoxib [Celebrex] 100 mg PO BID Buspirone HCl [Buspar] 15 mg PO BID BuPROPion [Wellbutrin] 25 mg PO QAM BuPROPion [Wellbutrin] 50 mg PO HS Ferrous Sulfate 325 mg PO BIDWM tablet Multivit/Ca/Min/Fe/FA [Thera M Plus] 1 tab PO DAILY tablet Ascorbic Acid [Vitamin C] 500 mg PO BIDWM tablet Home Medications: Aspirin Enteric Coated [Aspirin EC] 325 mg PO BID #20 tablet. 06/20/18 [Rx] Docusate [Colace] 100 mg PO BID 10 Days #20 capsule 06/20/18 [Rx] Duloxetine HCl [Cymbalta] 60 mg PO DAILY 06/21/18 [History] Linaclotide [Linzess] 145 mcg PO DAILY PRN 06/21/18 [History] Metoprolol Tartrate 50 mg PO BID 06/21/18 [History] Potassium Citrate [Urocit-K] 10 meq PO TID 06/21/18 [History] Pravastatin Sodium [Pravachol] 80 mg PO DAILY 06/21/18 [History] Pregabalin [Lyrica] 150 mg PO BID 06/21/18 [History] BuPROPion [Wellbutrin] 25 mg PO QAM 06/22/18 [History] BuPROPion [Wellbutrin] 50 mg PO HS 06/22/18 [History] Buspirone HCl [Buspar] 15 mg PO BID 06/22/18 [History] Celecoxib [Celebrex] 100 mg PO BID 06/22/18 [History] Diltiazem CD (24hr) [Cardizem CD] 240 mg PO DAILY 06/22/18 [History] Ascorbic Acid [Vitamin C] 500 mg PO BIDWM tablet 06/23/18 [Rx] Ferrous Sulfate 325 mg PO BIDWM tablet 06/23/18 [Rx] Multivit/Ca/Min/Fe/FA [Thera M Plus] 1 tab PO DAILY tablet 06/23/18 [Rx] Allergies/Adverse Reactions: Allergy/AdvReac Type Severity Reaction Status Date / Time prochlorperazine Allergy See Verified 06/16/18 10:29 [From Compazine] Comments promethazine [From Phenergan] Allergy See Verified 06/16/18 10:29 Comments Date of admission: 06/23/18 13:32 Primary care physician: Sally Bernstein Consults: 06/23/18 14:00 Consult to Occupational Therapy [CONS] Routine Comment: Evaluate, develop and implement POC Reason for Consult: eval for post hip surgery Does patient have active BEDREST order?: No Is patient medically & hemodynamically stable?: Yes Patient assessed for mobility or mobilized this visit?: No Consult to Physical Therapy [CONS] Routine Comment: Evaluate, develop and implement POC Reason for Consult: eval for post hip surgery Does patient have active BEDREST order?: No Is patient medically & hemodynamically stable?: Yes Patient assessed for mobility or mobilized this visit?: No Consult to Recreational Therapy [CONS] Routine Comment: Evaluate, develop and implement POC Consult to Log Buyer [CONS] Routine Reason for SW Consult: eval for d/c post hip surgery Discharging clinician: Po Love - Constitutional Vitals: Temp Pulse Resp BP Pulse Ox 97.7 F 80 16 118/69 95 06/29/18 07:43 06/29/18 07:43 06/29/18 07:43 06/29/18 07:43 06/29/18 07:43 General appearance: Present: cooperative, A&O X 3, pleasant, no acute distress, answers questions appropriately - Head Head exam: Present: atraumatic, normocephalic - Eye Eye exam: Present: PERRL, conjuntiva pink, sclera anicteric Pupils: Present: PERRL - Neck Neck exam general surgery: Present: supple, trachea midline. Absent: lymphadenopathy - Respiratory Respiratory exam: Present: CTAB. Absent: accessory muscle use, rales, rhonchi, wheezes - Cardiovascular Cardiovascular exam: Present: RRR, +S1, +S2. Absent: diastolic murmur, gallop, rubs, systolic murmur - GI/Abdominal GI/Abdominal exam: Present: normal bowel sounds, soft, no peritoneal signs. Absent: distended, tenderness - Extremities Exam Extremities exam: Present: warm, radial pulses palpable and symmetrical. Absent: calf tenderness, cyanotic, pedal edema Additional comments: Left hip surgical incisions appear healthy and intact. - Neurological Exam Neurological exam: Present: CN II-XII intact, oriented X3, no focal deficits. Absent: pronater drift, facial droop, speech deficit - Skin Skin exam: Present: dry, intact - Patient Status Disposition: Home, Self-Care Condition: Good Functional capacity at discharge: uses cane/walker Overall status at discharge: patient is progressing back to baseline - Discharge Instructions Follow Up With: Sally Bernstein [Primary Care Provider] - - Diet and Activity Activity: as per physical therapy Diet: advance to your usual diet, low fat, low cholesterol, low salt diet
== END 2018-06-29 12:00 | disposition home or self-care (01) | DRG 560 ==
LOC: INPGRE 13:32